=== PATIENT | male | born 2000 | race Caucasian/White ===

== ENCOUNTER 2022-06-04 22:02 | Emergency (ER) | payer MEDICAID ==
[~2022-06-04] VITALS: Ht 162.6 cm; Wt 68.0 kg
[2022-06-04 23:15] VITALS: BP 128/64
== END 2022-06-04 23:28 | disposition home or self-care (01) ==
LOC: ER 22:11
DX: F10.10 Alcohol abuse, uncomplicated (principal); F32.A Depression, unspecified; Y90.9 Presence of alcohol in blood, level not specified
CPT/HCPCS: 99283